=== PATIENT | male | born 1985 | race African-American/Black ===

== ENCOUNTER 2020-07-29 21:52 | Emergency (ER) | payer SELFPAY ==
[~2020-07-29] VITALS: Ht 190.5 cm; Wt 100.3 kg
[2020-07-29 21:57] VITALS: BP 136/90
--- NOTE | 2020-07-29 22:27 | NUR ---
assessment made. chart up for MD to see. c/o right small and ring finger numbness. able to move and still have some sensation.
--- NOTE | 2020-07-29 22:34 | NUR ---
PA student at bedside.
--- NOTE | 2020-07-29 22:54 | NUR ---
blood drawn by dental laboratory assistant.
[2020-07-29 22:58] LABS: BASOPHILS % (AUTO) 1 % (0-1); EOSINOPHILS % (AUTO) 2 % (1-7); LYMPHOCYTES % (AUTO) 29 % (22-44); MEAN CORPUSCULAR HEMOGLOBIN 28.4 pg (27.5-34.5); MEAN CORPUSCULAR HGB CONC 33.6 g/dL (33.2-36.2); MEAN PLATELET VOLUME 10.3 fL (7.4-10.4); MONOCYTES % (AUTO) 12 % (2-9); NEUTROPHILS % (AUTO) 56 % (42-75); PLATELET COUNT 160 x10^3/uL (130-400); RED BLOOD COUNT 5.52 x10^6/uL (4.38-5.82); RED CELL DISTRIBUTION WIDTH 14.6 % (9.4-14.8)
[2020-07-29 23:03] LABS: ALBUMIN 3.9 g/dL (3.4-5.0); ANION GAP 4 mmol/L (5-15); CALCIUM 8.8 mg/dL (8.5-10.1); CHLORIDE 107 mmol/L (98-107)
[2020-07-29 23:07] LABS: ALANINE AMINOTRANSFERASE 43 U/L (12-78); ALKALINE PHOSPHATASE 60 U/L (45-117); BILIRUBIN,TOTAL 0.3 mg/dL (0.2-1.0); CREATININE 1.33 mg/dL (0.7-1.3)
[2020-07-29 23:15] LABS: MD NO
== END 2020-07-29 23:30 | disposition home or self-care (01) ==
LOC: ED 23:29
DX: R20.2 Paresthesia of skin (principal); M54.10 Radiculopathy, site unspecified
CPT/HCPCS: 36415; 80053; 85025; 99283